=== PATIENT | female | born 1960 | race Caucasian/White ===

== ENCOUNTER 2017-02-23 12:30 | Emergency (ER) | payer OTHER ==
[~2017-02-23] VITALS: Ht 170.2 cm; Wt 80.3 kg
[2017-02-23] MEDS ORDERED: SODIUM CHLORIDE 0.9% 500ML 500 ML IV STA (12:36)
[2017-02-23] MEDS ORDERED: IBUPROFEN 400 MG TAB PO STA (12:36)
[2017-02-23] MEDS ORDERED: ALBUTEROL SULF 0.083% NEB SOLN 3 ML NEB NEB STA (12:36)
[2017-02-23] MEDS ORDERED: AZITHROMYCIN 500MG/NS 250 ML 250 ML IV STA (12:36)
[2017-02-23] MEDS ORDERED: IPRATROPIUM BROMIDE 0.02% 2.5 ML NEB NEB STA (12:36)
[2017-02-23] MEDS ORDERED: CEFTRIAXONE SOD 1 GM VIAL IV ONE (12:45)
[2017-02-23] MEDS ORDERED: ACETAMINOPHEN/CODEINE ELIX 120-12 MG/5 ML UDC PO ONE (12:45)
--- NOTE | 2017-02-23 13:26 | Diagnostic Imaging Report ---
PROCEDURE: X-RAY CHEST, TWO VIEWS COMPARISON: 03/03/2011. INDICATIONS: SHORTNESS OF BREATH FINDINGS: The lungs are well-inflated. No focal airspace consolidation, pleural effusion, or pneumothorax. Cardiomediastinal contour and pulmonary vasculature are within normal limits with the exception of mild tortuosity of the thoracic aorta. Dextroscoliotic curvature of the midthoracic spine, stable. No acute osseous abnormality. CONCLUSION: No acute thoracic abnormality. Dictated by: Segun Garcia M.D. on 02/23/2017 at 13:35 Electronically approved by: Segun Garcia M.D. on 02/23/2017 at 13:35
[2017-02-23 14:08] LABS: BASOPHILS % 0.3 % (0.0-1.0); EOSINOPHILS % 0.3 % (0.0-6.0); HEMATOCRIT 46.3 % (34.2-44.1); HEMOGLOBIN 15.7 g/dL (12.0-16.0); LYMPHOCYTES # (AUTO) 0.6 (1.0-3.2); LYMPHOCYTES % 8.3 % (18.0-39.1); MEAN CORPUSCULAR HEMOGLOBIN 31.6 pg (28-32); MEAN CORPUSCULAR HGB CONC 33.9 g/dL (31-35); MEAN CORPUSCULAR VOLUME 93.2 fL (81-99); MONOCYTES # (AUTO) 0.9 (0.2-0.8); MONOCYTES % 12.9 % (4.4-11.3); NEUTROPHILS # (AUTO) 5.4 (2.1-6.9); NEUTROPHILS % 77.9 % (38.7-80.0); PLATELET COUNT 139 x10e3/uL (140-360); RED BLOOD COUNT 4.97 x10e6/uL (3.6-5.1); RED CELL DISTRIBUTION WIDTH 12.4 % (11.7-14.4)
[2017-02-23 14:26] LABS: ALANINE AMINOTRANSFERASE 38 IU/L (0-55); ALBUMIN/GLOBULIN RATIO 1.2 (0.8-2.0); ALKALINE PHOSPHATASE 69 IU/L (40-150); ANION GAP 13.1 mmol/L (8-16); BLOOD UREA NITROGEN 11 mg/dL (7-26); BUN/CREATININE RATIO 15 (6-25); CARBON DIOXIDE 31 mmol/L (22-29); CHLORIDE 95 mmol/L (98-107); CREATINE KINASE 43 IU/L (29-168); CREATININE, SERUM 0.75 mg/dL (0.57-1.11); EST GLOMERULAR FILTRATION RATE > 60 ML/MIN (60-); GLUCOSE 90 mg/dL (74-118); LIPASE 19 U/L (8-78); POTASSIUM 3.1 mmol/L (3.5-5.1); SODIUM 136 mmol/L (136-145)
[2017-02-23 14:32] LABS: TROPONIN I 0.009 ng/mL (0-0.300)
[2017-02-23] MEDS ORDERED: DEXAMETHASONE SOD PHOS 10 MG/1 ML VIAL INJ ONE (14:45)
[2017-02-23] MEDS ORDERED: AZITHROMYCIN 250MG/NS 100 ML 100 ML IV STA (15:44)
[2017-02-23] MEDS ORDERED: AZITHROMYCIN 500MG/NS 250 ML 250 ML ONE (16:07)
[2017-02-23] MEDS ORDERED: ALBUTEROL SULF 0.083% NEB SOLN 3 ML NEB ONE (16:57)
[2017-02-23] MEDS ORDERED: IPRATROPIUM BROMIDE 0.02% 2.5 ML NEB ONE ×2 (16:57→17:06)
[2017-02-23] MEDS ORDERED: LEVALBUTEROL HCL SOLN NEBU 0.63 MG/3 ML NEB ONE (17:06)
[2017-02-23 18:15] VITALS: BP 106/56
== END 2017-02-23 18:24 | disposition home or self-care (01) ==
LOC: ER 12:30
DX: R50.9 Fever, unspecified (principal); R05 Cough; J20.9 Acute bronchitis, unspecified; I10 Essential (primary) hypertension; Z87.891 Personal history of nicotine dependence
CPT/HCPCS: 36415; 71020; 80053; 82550; 82553; 83605; 83690; 84484; 85025; 87040; 87400; 93005; 94640; 99284; J0456; J0696; J1100; J7040